=== PATIENT | female | born 1965 | race Caucasian/White ===

== ENCOUNTER 2019-11-21 13:49 | Emergency (ER) | payer BC, SELFPAY ==
[2019-11-21 13:55] VITALS: BP 160/91; PULSE 91; RESP 14; TEMP 36.3; O2SAT 92
--- NOTE | 2019-11-21 13:57 | W.ED.GENAD ---
Discharge Plan Disposition Patient Disposition: HOME Condition: Stable Discharge Details Chief Complaint: Orthopedic Clinical Impression: Left knee pain Primary Care Provider: Igor Brooks ED Provider: Deloris Pulliam Home Meds and New Rx's Prescriptions: Continued ibuprofen 600 MG tablet 600 mg PO TID Qty: 30 RF: 1 Discharge Instructions Instructions: Knee Pain (ED) Additional Instructions: Rest, ice, and elevate the affected area as much as possible. Alternate tylenol and motrin as needed and directed for pain. Follow-up with your primary care doctor in 1 week. You can also call orthopedics for follow-up for further evaluation if your knee pain persists or worsens. Return to the emergency department with any worsening or new concerning symptoms. Referrals: Warren Tay MD [ [facility] STAFF PHYSICIAN] - Discharge Data Discharge Date/Time-TO BE ENTERED AT DEPARTURE: 11/21/19 15:21 Discharge Physician: Deloris Pulliam Medical Decision Making 53-year-old female presents with left knee pain for the past 5 months after 2 falls directly onto knee, worse over the past several weeks after twisting knee while walking. Left knee appears mild to moderately edematous with mild ecchymosis. Pain with range of motion, most specifically flexion. No ligamentous instability. No sign of cellulitis or septic joint. No calf tenderness. Neurovascular intact. Left knee x-ray obtained and negative. Patient declined ibuprofen here. She was advised that she likely can have continued pain after injury with continued ambulation complicated by sprain with continued ambulation. Advised on the importance of rest, ice, elevate, NSAIDs and Tylenol. Ede wrap placed and crutches given. Usual and customary return precautions given prior to discharge. Imaging Data Radiologic Study: Radiologist's impression: XR KNEE LT 4V+ CLINICAL HISTORY: trauma. TECHNIQUE: 2D digital imaging was performed. COMPARISON: No exams were available for comparison FINDINGS: BONES: No acute fracture is present. No bony destructive lesion is seen. JOINTS: The knee is normally aligned. No joint effusion is seen. SOFT TISSUE: Normal. IMPRESSION: Normal radiographs of the left knee. HPI General Mode of arrival: ambulatory. Date/Time Provider Initiated Documentation: 11/21/19 13:57. Limitations to Documentation: no limitations. Information obtained by: patient. HPI Narrative: Patient is a 53-year-old female who presents with left knee pain for the past 5 months. Patient states she had 2 falls onto her left knee in June and has had pain and swelling since then. She states since the coronavirus pandemic, she has been walking more frequently for exercise over the past few weeks and thinks she may have tweaked her knee as she has had worsening pain, specifically with weightbearing and bending in her left knee. She denies any new fall onto her left knee. She denies any fever. She has been taking ibuprofen with some relief. Related Data Home Medications Medication Instructions Recorded Confirmed ibuprofen 600 mg PO TID #30 tab 12/13/14 11/21/19 Previous Rx's Medication Instructions Recorded ibuprofen 600 mg PO TID #30 tab 12/13/14 Allergies Allergy/AdvReac Type Severity Reaction Status Date / Time No Known Allergies Allergy Unverified 11/21/19 14:02 Review of Systems All systems reviewed & are unremarkable except as noted in HPI and below PFSH Social History Smoking/Tobacco Use Status: Current every day Alcohol Intake: current Alcohol Intake frequency: holidays/special occasions only Drug use: Never Substance use type: does not use Do you feel safe at home: Yes Do you feel safe in your relationship?: Yes Exam Const General: cooperative, healthy appearing and no acute distress HENMT Head: normal to inspection Mouth: oral mucosae normal Eyes General: appearance normal, both eyes and all related structures Neck Neck: normal visual inspection Resp Effort & Inspection: normal respiratory effort and able to speak in complete sentences Cardio Rate: regular rate Skin General skin exam: no rashes or lesions noted Neuro General: patient alert, patient awake and patient oriented x3 Motor: muscle tone normal throughout Extrem Knee images: 1. Mild to moderate anterior edema and ecchymosis. No crepitus, erythema, rash or lesions. Other: Pain in left knee with range of motion, most specifically flexion. No pain with valgus or varus stress. Negative anterior posterior drawer test. Limited ability to test range of motion due to significant pain. No left calf tenderness. Left DP/PT pulses intact. Psych Appearance: grossly normal Affect: normal affect
--- NOTE | 2019-11-21 14:00 | DI.RAD_ITS ---
EXAM: XR KNEE LT 4V+ CLINICAL HISTORY: trauma. TECHNIQUE: 2D digital imaging was performed. COMPARISON: No exams were available for comparison FINDINGS: BONES: No acute fracture is present. No bony destructive lesion is seen. JOINTS: The knee is normally aligned. No joint effusion is seen. SOFT TISSUE: Normal. IMPRESSION: Normal radiographs of the left knee. DATA REPOSITORY: RADIATION DOSE DELIVERED:
[2019-11-21 15:15] VITALS: BP 147/92; PULSE 73; RESP 18; TEMP 36.3; O2SAT 99
== END 2019-11-21 15:21 | disposition home or self-care (01) ==
PROVIDERS: Emergency Provider Physician Assistant; PCP Internal Medicine
DX: M25.562 Pain in left knee (principal); W19.XXXA Unspecified fall, initial encounter; X50.9XXA Other and unspecified overexertion or strenuous movements or postures, initial encounter
CPT/HCPCS: 99283; 73564; E0114

== ENCOUNTER 2020-07-30 22:20 | Outpatient (REF) | payer BC, SELFPAY ==
[2020-08-01 14:03] LABS: COVID-19 RT-PCR UVMMC Result Negative (Negative)
== END 2020-07-30 22:21 | disposition home or self-care (01) ==
LOC: NCHCN 22:20
PROVIDERS: PCP Internal Medicine; Visit Provider Nurse Practitioner Family
DX: R68.83 Chills (without fever) (principal); M79.18 Myalgia, other site
CPT/HCPCS: U0003

== ENCOUNTER 2021-08-05 08:07 | Emergency (ER) | payer OTHER, SELFPAY ==
[2021-08-05 08:14] VITALS: BP 121/83; PULSE 81; RESP 14; TEMP 36.7; O2SAT 98
--- NOTE | 2021-08-05 08:30 | DI.RAD_ITS ---
Exam(s) XR KNEE LT 3V AP,LAT,JAQUAN EXAM: XR KNEE LT 3V AP,LAT,JAQUAN CLINICAL HISTORY: pain posterior medial. TECHNIQUE: 2D digital imaging was performed of the left knee. Three images were obtained. AP, AP t unnel and lateral views were obtained. COMPARISON: CR CHEST 2 VIEWS PA,LAT from 12/13/2014 CR XR KNEE LT 4V+ from 11/21/2019 FINDINGS: BONES: No acute fracture is present. No bony destructive lesion is seen. JOINTS: The knee is normally aligned. No joint effusion is seen. SOFT TISSUE: Normal. IMPRESSION: Normal radiographs of the left knee. DATA REPOSITORY: RADIATION DOSE DELIVERED:
--- NOTE | 2021-08-05 08:30 | DI.US_ITS ---
Exam(s) US LOWER EXTREMITY VENOUS LT EXAM: US LOWER EXTREMITY VENOUS LT CLINICAL HISTORY: pain TECHNIQUE: Left lower extremity venous ultrasound performed using grayscale, color-flow, and spectra l Doppler analysis. COMPARISON: No exams were available for comparison FINDINGS: The left common femoral, femoral and popliteal veins demonstrate normal compressibility, augmentation , and color Doppler. The posterior tibial veins are patent. The saphenofemoral junction is unremarka ble. There is no evidence of a Estes cyst. The soft tissues are unremarkable. IMPRESSION: 1. No DVT. 2. Results of this exam have been verbally communicated with provider. DATA REPOSITORY:
[2021-08-05] MEDS: Ibuprofen 600 MG TAB PO (08:37)
--- NOTE | 2021-08-05 08:38 | W.ED.GENAD ---
Discharge Plan Disposition Patient Disposition: HOME Condition: Stable Discharge Details Clinical Impression: Acute pain of left knee Primary Care Provider: Jean Gayle ED Provider: Yemi Villatoro Home Meds and New Rx's Prescriptions: Continued ibuprofen 600 MG tablet 600 mg PO TID Qty: 30 RF: 1 Changed acetaminophen [Tylenol] 325 mg Tablet 650 mg PO TID Qty: 0 RF: 0 Discharge Instructions Instructions: Knee Pain (ED) Additional Instructions: Please take ibuprofen over the counter. Take 600mg by mouth every 6 hours as needed for pain. Use hinged knee brace and crutches over the next week. You may bear weight as tolerated. If pain persists, continue to use brace Please contact orthopedics to arrange follow-up if pain persists this week. Return to the ER immediately for any worsening or new concerning symptoms. Stand Alone Forms: Work Release Referrals: [facility] [Provider Group] Jean Gayle [Primary Care Provider] - Medical Decision Making 55yo f here with atraumatic left knee pain that started yesterday and has persisted. No inflammatory changes appreciable on exam other than tenderness medial and posterior knee. She does have some tenderness in her posterior calf as well. Consider DVT versus arthritis. I will check right lower extremity ultrasound as well as knee x-ray. Patient was given ibuprofen 600 mg PO. -- ultrasound interpreted by radiology: negative for dvt -- xray lt knee interpreted by radiology:normal radiographs of the left knee Suspect medial meniscal injury vs arthritis. Hinged knee brace applied. Recommended crutches and patient refused noting that she had crutches at home. Recommended followup ortho if symptoms persist. Patient verbalized understanding of discharge instructions. HPI General Mode of arrival: ambulatory. Date/Time Provider Initiated Documentation: 08/05/21 08:22. Limitations to Documentation: no limitations. Information obtained by: patient. HPI Narrative: 55-year-old female presents with chief complaint of left knee pain. Pain started yesterday morning upon waking. Pain has persisted and progressed. Now moderate to severe and worse with movement of the knee. Pain localized to medial knee and posterior knee and upper leg. No associated rash or fever. Patient cannot recall any specific injury. Denies tick bite in the past year. Patient notes that she took Tylenol this morning which has not helped. Related Data Home Medications Medication Instructions Recorded Confirmed ibuprofen 600 mg PO TID #30 tab 12/13/14 08/05/21 acetaminophen [Tylenol] 650 mg PO TID #0 tab 08/05/21 08/05/21 Previous Rx's Medication Instructions Recorded ibuprofen 600 mg PO TID #30 tab 12/13/14 acetaminophen [Tylenol] 650 mg PO TID #0 tab 08/05/21 Allergies Allergy/AdvReac Type Severity Reaction Status Date / Time No Known Allergies Allergy Unverified 08/05/21 08:18 General Stated Complaint: Orthopedic ANASTACIA: 3 Review of Systems All systems reviewed & are unremarkable except as noted in HPI and below Constitutional Constitutional: Denies fever(s) Musculoskeletal Musculoskeletal: Reports as per HPI Integumentary/Breasts Skin/Breast: Denies rash PFSH All Active Problems (Updated 08/05/21 @ 10:44 by Yemi Villatoro MD) Acute pain of left knee (Acute) Social History Smoking/Tobacco Use Status: Current every day Tobacco Type: cigarettes Smoking risk assessment performed?: Yes Alcohol Intake: current Alcohol Intake frequency: holidays/special occasions only Drug use: Never Substance use type: does not use Do you feel safe at home: Yes Do you feel safe in your relationship?: Yes Exam Const General: cooperative and no acute distress HENMT Mouth: moist mucous membranes Resp Auscultation: clear to auscultation bilaterally, no rales, no rhonchi and no wheezes Cardio Rate: regular rate and not tachycardic Rhythm: regular rhythm Pulses: dorsalis pedis present Skin General skin exam: no rashes or lesions noted Neuro General: patient alert, patient awake, patient oriented x3 and tone normal Extrem General: no edema Left lower extremity: knee Details: tenderness Location: of the medial joint line and abnormal ROM Details: pain with active ROM Details: with flexion; no swelling and lower leg Details: tenderness Location: of the posterior calf Course Vital Signs Vital signs: Vital Signs Temperature 36.7 C 08/05/21 08:14 Pulse 81 08/05/21 08:14 Respiratory Rate 14 08/05/21 08:14 Blood Pressure 121/83 08/05/21 08:14 Pulse Oximetry 98 08/05/21 08:14 Temperature 36.7 C 08/05/21 08:14 Temperature Source Oral 08/05/21 08:14 Pulse 81 08/05/21 08:14 Respiratory Rate 14 08/05/21 08:14 Respiratory Effort Non-Labored 08/05/21 08:20 Blood Pressure 121/83 08/05/21 08:14 Blood Pressure Position Sitting 08/05/21 08:14 Pulse Oximetry 98 08/05/21 08:14 Oxygen Delivery Method Room Air 08/05/21 08:14 Oxygen Flow Rate 0 08/05/21 08:14 Pain Level 8 08/05/21 08:20
[2021-08-05 11:07] VITALS: BP 135/81; PULSE 62; RESP 18; O2SAT 98
== END 2021-08-05 11:16 | disposition home or self-care (01) ==
PROVIDERS: Emergency Provider Student in an Organized Health Care Education/Training Program; PCP Physician Assistant
DX: M25.562 Pain in left knee (principal)
CPT/HCPCS: 29505; 73562; 99284; 93971; 99283

== ENCOUNTER 2021-08-15 08:19 | Outpatient (REF) | payer OTHER, SELFPAY ==
[2021-08-15 15:20] LABS: HCT 41.9 % (36.0-46.0); HGB 14.1 g/dL (11.2-15.7); MCH 30.4 pg (27.0-33.0); MCHC 33.7 % (32.0-36.0); MCV 90.3 fL (80-95); MPV 8.9 fL (8.0-11.0); Platelet Count 339 10^3/uL (130-400); RBC 4.64 10^6/uL (3.93-5.22); RDW 12.4 % (11.7-14.6); RDW-SD 41.2 fL; WBC 8.47 10^3/uL (4.4-10.8)
[2021-08-15 15:44] LABS: Anion Gap 10.3 mmol/L (3-11); BUN 21 mg/dL (7-18); CO2 25.7 mmol/L (21.0-32.0); CREATININE 0.8 mg/dL (0.55-1.02); Calcium 9.3 mg/dL (8.5-10.1); Calculated LDL 165 mg/dL (<100); Chloride 104 mmol/L (98-107); Cholesterol 252 mg/dL (<200); Glucose 86 mg/dL (74-106); HDL Cholesterol 68 mg/dL (40-60); Potassium 4.2 mmol/L (3.5-5.1); Sodium 140 mmol/L (136-145); Triglyceride 96 mg/dL (<150)
== END 2021-08-15 08:20 | disposition home or self-care (01) ==
LOC: NCHCN 08:19
PROVIDERS: PCP Physician Assistant; Visit Provider Physician Assistant
DX: Z00.00 Encounter for general adult medical examination without abnormal findings (principal)
CPT/HCPCS: 80048; 80061; 85027

== ENCOUNTER 2021-09-01 03:17 | Outpatient (CLI) | payer OTHER, SELFPAY ==
--- NOTE | 2021-09-01 16:30 | DI.MAMMO_ITS ---
Exam(s) MAMMO SCREENING EXAM: MAMMO SCREENING CLINICAL HISTORY: SCREENING, Z12.39 TECHNIQUE: Mammograms were interpreted according to the usual protocol including computer analysis w [employer] CAD system, tomosynthesis and C-view imaging. COMPARISON: No exams were available for comparison. Last exam 2007 FINDINGS: The breasts are composed of scattered fibroglandular densities, Breast Density category B. No suspicious masses or suspicious microcalcifications are seen. Benign calcifications are noted in the central right breast. No skin thickening or abnormal axillary lymph nodes are seen. IMPRESSION: BI-RADS Cat 2 - Benign Findings, BI-RADS Category 2 - Negative Mammogram with benign findings. Year ly screening mammography is recommended. Yearly screening mammography is recommended. Breast Density - Category B, scattered fibroglandular densities. A negative radiographic report should not delay biopsy if a dominant or clinically suspicious mass is present. Up to ten percent of cancers are not identified on mammography. A negative report may reinforce clinical impression. Adenosis and dense breasts may obscure an underlying neoplasm. False positive reports average 6 to 10%. Patient will receive a letter notifying them of these results.
== END 2021-09-01 03:37 ==
PROVIDERS: PCP Physician Assistant; Visit Provider Physician Assistant
DX: Z12.31 Encounter for screening mammogram for malignant neoplasm of breast (principal)
CPT/HCPCS: 77063; 77067

== ENCOUNTER 2021-10-29 07:35 | Day surgery (SDC) | payer OTHER, SELFPAY ==
--- NOTE | 2021-10-29 07:00 | W.COLOREPORT ---
Colonoscopy Report Date of procedure: 10/29/21 Pre-op diagnosis general: Colon Cancer Screening Post-op diagnosis procedure note: same Procedure: Colonoscopy Surgeon: Ellyn Luu Anesthesia Type: General:No Airway Pathology: none sent Complications: None Disposition: same day Indications: Ms. Gudino is a pleasant 55-year-old female who is here to discuss her for screening colonoscopy.? She denies any family history of colon cancer.? The procedure was described in detail as well as the risks and benefits. Risks, benefits and complications have been reviewed. Complications include but are not limited to bleeding, pain, perforation, missed small lesion/polyp, sore throat, aspiration and adverse reaction to the medications. Questions were entertained and answered to their satisfaction and they wished to proceed. No guarantees were given or implied. Colonoscopy under sedation Prep: Miralax/Dulcolax Procedure Start Time: 09:34 Procedure End Time: 09:50 Retraction Time: 10 minutes Findings: mild sigmoid diverticulosis Procedure Description: After informed consent was obtained the patient was taken to the procedure room and placed in a left decubitous position. Monitors were applied and a time out was done. The patients name, date of , procedure, allergies to medications and metal in their body was reviewed. The patient was then sedated. Once sedated and comfortable a rectal exam was done. External exam was normal. Internal exam revealed a normal sphincter tone and no palpable masses. The scope was then introduced and retro-flexed. No internal hemorrhoids, polyps or masses were identified on retro-flexion. The scope was then advanced to the cecum without difficulty. The ileocecal vlave and appendiceal orifice were identified. The prep was good. The scope was then slowly retracted over 10 minutes back into the rectum. There were no Polyps. There was mild sigmoid diverticulosis noted. The scope was removed and the patient was woken up and taken back to Same day surgery in stable condition. The patient tolerated the procedure well and there were no immediate complications. Follow up: The patient should follow up in 10 years unless they develop changes in bowel habits or other new gastrointestinal complaints.
--- NOTE | 2021-10-29 07:01 | W.PM.DSUDISC ---
Discharge Plan Disposition Patient Disposition: HOME Condition: Good Discharge Details Reason For Visit: Colonoscopy Attending Provider: Ellyn Luu Primary Care Provider: Jean Gayle Home Meds and New Rx's Prescriptions: Continued ibuprofen 600 MG tablet 600 mg PO TID Qty: 30 1RF acetaminophen [Tylenol] 325 mg Tablet 650 mg PO TID Qty: 0 0RF Discharge Instructions Additional Instructions: Findings: normal Follow up: 10 minutes Please call if you develop: fevers >101.5 Nausea or Vomiting Abdominal pain that is not transient Rectal bleeding that is more then a tbsp A hard abdomen and inability to pass gas DAY SURGERY UNIT POST ENDOSCOPY INSTRUCTIONS Instructions for everyone who is given Anesthesia: For your safety, please do the following for the next 24 Hours: a. Do not drive or operate dangerous equipment b. Do not drink alcohol beverages or use any recreational drugs for the first 24 hours or while taking pain medications. The medications in your body may have a reaction that can be dangerous. c. Do not make any important decisions or sign any important papers 1. Generally there are no restrictions on your activity after a day or so has gone by, but you may feel a bit fatigued for a few days. 2. After you arrive home you may have a light meal and return to a normal diet as you can tolerate it without feeling sick to your stomach. 3. After surgery, you may feel pain or discomfort. This should be only transient, but if it persists please contact your doctor. 4. If there are any questions regarding the findings of your procedure, please feel free to contact your doctor. 6. If you are unable to contact your doctor with a problem, contact the hospital at [phone]. 7. Continue all your regular medications unless directed otherwise. I understand the above instructions and have no questions. Signature of Patient or Responsible Adult Escort Date/Time Name of Responsible Adult Escort Signature of Nurse Date/Time Activity:: Activity as Tolerated Diet:: As Tolerated Discharge Orders Discharge Orders: Discharge Order (Routine); Ordered 10/29/21 Ordered By: Ellyn Luu
[2021-10-29 07:47] VITALS: BP 115/87; PULSE 86; RESP 17; TEMP 36.5; O2SAT 100
[2021-10-29] MEDS: Lactated Ringers 1,000 ML 80 ML IV (08:03)
--- NOTE | 2021-10-29 08:38 | W.ANESPRE ---
General Info Date of Service Date Performed: 10/29/21 Height: 5 ft 3 in Weight: 76.2 kg Body Mass Index (BMI): 29.7 Surgical Procedure: Operation Date: 10/29/21 09:20 Proposed Procedure Side Surgeon p Colonoscopy Ellyn Luu MD Meds Allergies and Home Medications Allergies Allergy/AdvReac Type Severity Reaction Status Date / Time No Known Allergies Allergy Unverified 10/29/21 07:54 Home Medication Medication Instructions Recorded ibuprofen 600 mg tablet 600 mg PO TID #30 tab 12/13/14 acetaminophen 325 mg tablet 650 mg PO TID #0 tab 08/05/21 (Tylenol) Current Visit Medications: Current Medications Generic Name Dose Route Start Last Admin Trade Name Freq PRN Reason Stop Dose Admin Hyoscyamine Sulfate 0.125 mg 10/29/21 07:02 Hyoscyamine 0.125 Mg Sl/Oral/Chew SL DIRECTED PRN Ringer's Solution 1,000 mls @ 80 mls/hr 10/29/21 06:00 10/29/21 08:03 IV 11/27/21 23:59 80 mls/hr INFUSION NAOMI Administration IV Miscellaneous Supplies 1 each 10/29/21 06:00 Iv Access IV 11/27/21 23:59 DIRECTED NAOMI Ondansetron HCl 4 mg 10/29/21 07:02 Ondansetron 4 Mg/2 Ml Vial IVP Q4H PRN PRN Nausea / Vomiting Sodium Chloride 0 ml 10/29/21 06:00 Normal Saline Flush 10 Ml Syr IV 11/27/21 23:59 PRN PRN Sodium Chloride 0 ml 10/29/21 06:00 Normal Saline 10 Ml Vial IJ 11/27/21 23:59 DIRECTED PRN Sterile Water 0 ml 10/29/21 06:00 Water,Injection,Sterile 10 Ml Vial IJ 11/27/21 23:59 DIRECTED PRN PFSH Active Problems Active Problems: Problem Status Onset Code Screening for colon cancer Z12.11 Nicotine dependence F17.200 Medical History Medical History Impingement syndrome of right shoulder Surgical History Surgical History H/O tubal ligation (~04/11/02) History of hernia repair (~06/28/99) left femoral incarcerated hernia Tobacco Smoking/Tobacco Use Status: Current every day Tobacco Type: cigarettes Smoking cigarettes per day: 10 Alcohol Alcohol Intake: current Alcohol intake frequency: holidays/special occasions only Substance Use Substance use: Never Substance use type: does not use Vital Signs and Lab Results Vital Signs Most Recent Vital Signs in EMR: Most Recent Vital Signs Temp Pulse Resp BP Pulse Ox 36.5 C 86 17 115/87 100 10/29/21 07:47 10/29/21 07:47 10/29/21 07:47 10/29/21 07:47 10/29/21 07:47 Lab Results Blood Type / Crossmatch: No Data to Display Complete Blood Count: No Data to Display Complete Metabolic Panel: No Data to Display Liver Function Panel: No Data to Display Coagulation Panel: No Data to Display Cardiac Panel: No Data to Display Arterial Blood Gas: No Data to Display Venous Blood Gas: No Data to Display Pancreas Panel: No Data to Display Thyroid Panel: No Data to Display Infectious Disease: No Data to Display Blood Cultures: No Data to Display Toxicology Panel: No Data to Display Panel: No Data to Display Anesthesia Assessment and Plan Anesthesia History Personal History: No History of Anesthesia Complications and Pseudocholinesterase Deficiency Family History: No Family History of Anesthesia Complications Exercise Tolerance Exercise Tolerance: Metabolic Equivalents>4 Pertinent Negatives Pertinent Negatives: No Symptoms of GERD, No Major Cardiovascular Symptoms or Complaints, No Major Pulmonary Symptoms or Complaints and No History of CVA/TIA Cardiac & Pulmonary Exam Cardiac Exam: Normal S1/S2 Heart Sounds Pulmonary Exam: Clear Bilateral Breath Sounds Implantable Cardiac Device Does patient have a Pacemaker or an ICD?: No Airway Exam Known Difficult Airway: No Mallampati Class: 2 Mouth Opening: Normal (> 3cm) Thyromental Distance: Greater than 3 cm Neck Range of Motion: Full ROM Neck Circumference: Normal Teeth Condition: Normal Dentition (Mulitple broken upper and lower per patient) ASA Classification ASA Score: ASA 2 Emergency Case?: No NPO Status NPO Status: NPO Clears >2 hours, Solids >8 hours Status Status: Not Relevant due to Medical History Anesthesia Plan Resuscitation Status: Full Code Anesthesia Technique: General Anesthesia Airway Planned: Natural Airway Monitors Used: Standard Monitors
[2021-10-29 09:21] VITALS: BMI 29.7
[2021-10-29 10:01] VITALS: BP 108/79; PULSE 65; RESP 18; TEMP 36.7; O2SAT 98
--- NOTE | 2021-10-29 10:20 | W.ANESPOSTOP ---
Postoperative Evaluation Date, Time and Location Date Performed: 10/29/21 Time Performed: 10:01 Patient Location: Day Surgery Unit Vital Signs Most Recent Imported Vital Signs: Most Recent Vital Signs Temp Pulse Resp BP Pulse Ox 36.7 C 65 18 108/79 98 10/29/21 10:01 10/29/21 10:01 10/29/21 10:10/29/21 10:10/29/21 10:01 Pain Score Most Recent Pain Score: Most Recent Pain Score Pain Level 0 10/29/21 10:01 Assessment Mental Status: Awake (Alert & Oriented to Patient Baseline) Airway and Respiratory Function: Patent airway with normal (patient baseline) respiratory exam Cardiovascular Function: Hemodynamically Stable Hydration Status: Adequately Hydrated Nausea & Vomiting: No Nausea or Vomiting Pain: Pt. Denies Any Pain Peripheral Nerve Block: Patient did not receive a nerve block
[2021-10-29 10:22] VITALS: BP 115/75; PULSE 56; RESP 18; TEMP 36.4; O2SAT 99
== END 2021-10-29 11:13 | disposition home or self-care (01) ==
LOC: SUR 07:35
PROVIDERS: PCP Physician Assistant; Visit Provider Surgery
PROC: 0DJD8ZZ Inspection of Lower Intestinal Tract, Via Natural or Artificial Opening Endoscopic (ICD-10-PCS; CPT 45378; principal; 2021-10-29 09:15)
DX: Z12.11 Encounter for screening for malignant neoplasm of colon (principal); K57.30 Diverticulosis of large intestine without perforation or abscess without bleeding
CPT/HCPCS: 45378

== ENCOUNTER 2024-02-14 18:51 | Emergency (ER) | payer BC, SELFPAY ==
[2024-02-14 18:55] VITALS: BP 159/88; PULSE 79; RESP 16; TEMP 36.9; O2SAT 96
[2024-02-14 19:52] VITALS: BP 146/81; PULSE 78; RESP 16; O2SAT 95
[2024-02-14] MEDS: Ciprofloxacin 0.3% 2.5 ML BTL OD (20:41)
--- NOTE | 2024-02-14 23:13 | W.ED.GENAD ---
Discharge Plan Disposition Patient Disposition: Home Condition: Stable Discharge Details Clinical Impression: Hx of subconjunctival hemorrhage, Abrasion, corneal Primary Care Provider: Jean Gayle ED Provider: Radha Rodriguez Home Meds and New Rx's Prescriptions: Continued varenicline [Chantix Starting Month Box] 0.5 mg (11)- 1 mg (42) tablets,dose pack See Rx Instructions PO PER PKG DIR Rx Instructions: PO PER PKG DIR nicotine 21 mg/24 hr patch 24 hour 1 patch transdermal DAILY ibuprofen 600 MG tablet 600 mg PO TID Qty: 30 1RF acetaminophen [Tylenol] 325 mg Tablet 650 mg PO TID Qty: 0 0RF Discharge Instructions Instructions: Corneal Abrasion ED Additional Instructions: Use the eyedrops 1 drop every 4-6 hours for the next 5 days Refrain from replacing your contacts until your symptoms improved Follow-up with your eye doctor as needed and return earlier should you have new or worsening complaints Referrals: Jean Gayle [Primary Care Provider] - HPI General Date/Time Provider Initiated Documentation: 02/14/24 19:33. HPI Narrative: This 58-year-old female presents with injury to right eye just prior to arrival. She states she was trying to hit a balloon and accidentally hit her eye. She also cannot find her contact lens. She denies any vision change to the right eye. Denies any history of coagulopathy. Related Data Home Medications ?Medication ?Instructions ?Recorded ?Confirmed ibuprofen 600 mg tablet 600 mg PO TID #30 tabs 12/13/14 02/14/24 acetaminophen 325 mg tablet 650 mg (2 x 325 mg) PO TID #0 tabs 08/05/21 02/14/24 (Tylenol) nicotine 21 mg/24 hr daily 1 patch transdermal DAILY 09/09/23 02/14/24 transdermal patch varenicline 0.5 mg (11)-1 mg (42) See Rx Instructions PO PER PKG DIR 09/09/23 02/14/24 tablets in a dose pack (Chantix Starting Month Box) Previous Rx's ?Medication ?Instructions ?Recorded ibuprofen 600 mg tablet 600 mg PO TID #30 tabs 12/13/14 acetaminophen 325 mg tablet 650 mg (2 x 325 mg) PO TID #0 tabs 08/05/21 (Tylenol) Allergies Allergy/AdvReac Type Severity Reaction Status Date / Time No Known Allergies Allergy Unverified 02/14/24 19:58 General Stated Complaint: EyeProblem ANASTACIA: 4 Exam Narrative Exam Narrative: Right eye with obvious subconjunctival hemorrhage with corneal abrasion, no contact visualized, lids everted. Pupil equal round reactive to light and accommodation without Emilia sign Course Vital Signs Vital signs: Vital Signs Temperature 36.9 C 02/14/24 18:55 Pulse 79 02/14/24 18:55 Respiratory Rate 16 02/14/24 18:55 Blood Pressure 159/88 H 02/14/24 18:55 Pulse Oximetry 96 02/14/24 18:55 Temperature 36.9 C 02/14/24 18:55 Temperature Source Oral 02/14/24 18:55 Pulse 78 02/14/24 19:52 Respiratory Rate 16 02/14/24 19:52 Respiratory Effort Normal, Non-Labored 02/14/24 19:52 Blood Pressure 146/81 H 02/14/24 19:52 Blood Pressure Position Sitting 02/14/24 19:52 Pulse Oximetry 95 02/14/24 19:52 Oxygen Delivery Method Room Air 02/14/24 19:52 Oxygen Flow Rate 0 02/14/24 18:55 Pain Level 7 02/14/24 19:52 Medical Decision Making 58-year-old female presenting with eye injury. Subconjunctival hemorrhage and corneal abrasion noted. Cipro eyedrops applied. 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 Return precautions reviewed and patient expressed understanding, visual acuity reviewed without acute abnormality, 2019 bilateral eyes Quality:SDOH Health Related Social Needs: No Data to Display PFSH All Active Problems (Updated 02/14/24 @ 20:06 by SAMANTA Mathews) Abrasion, corneal (Acute) Hx of subconjunctival hemorrhage (Acute) Screening for colon cancer (Acute) Nicotine dependence (Acute) Medical History (Updated 02/14/24 @ 20:06 by SAMANTA Mathews) Low back pain Hyperlipidemia Impingement syndrome of right shoulder Surgical History (Updated 10/31/21 @ 14:19 by Gina Dean RN) History of colonoscopy (~10/2021) History of hernia repair (~06/28/99) left femoral incarcerated hernia H/O tubal ligation (~04/11/02) Social History Smoking/Tobacco Use Status: Former Tobacco Use Quit Date: 11/27/23 Smoking risk assessment performed?: Yes Alcohol Intake: current Alcohol Intake frequency: holidays/special occasions only Alcohol type: beer Drug use: Never Substance use type: does not use Housing: house Current gender identity: female Do you feel safe at home: Yes Do you feel safe in your relationship?: Yes
== END 2024-02-14 20:47 | disposition home or self-care (01) ==
PROVIDERS: Emergency Provider Physician Assistant; PCP Physician Assistant
DX: H11.31 Conjunctival hemorrhage, right eye (principal); S05.01XA Injury of conjunctiva and corneal abrasion without foreign body, right eye, initial encounter; Z87.891 Personal history of nicotine dependence; W22.8XXA Striking against or struck by other objects, initial encounter
CPT/HCPCS: 99283

== ENCOUNTER 2024-08-04 14:22 | Outpatient (REF) | payer BC, SELFPAY ==
[2024-08-04 16:11] LABS: HCT 40.3 % (36.0-46.0); HGB 13.9 g/dL (11.2-15.7); MCH 30.8 pg (27.0-33.0); MCHC 34.5 % (32.0-36.0); MCV 89 fL (80-95); Platelet Count 334 10^3/uL (130-400); RBC 4.51 10^6/uL (3.93-5.22); RDW 12.5 % (11.7-14.6); RDW-SD 40.8 fL
[2024-08-04 16:38] LABS: ALT 33 U/L (14-59); AST 18 U/L (15-37); Albumin 3.6 g/dL (3.4-5.0); Alkaline Phosphatase 107 U/L (46-116); Anion Gap 7.3 mmol/L (3-11); BUN 20 mg/dL (7-18); CO2 27.7 mmol/L (21.0-32.0); CREATININE 0.8 mg/dL (0.55-1.02); Calcium 9.3 mg/dL (8.5-10.1); Calculated LDL 166 mg/dL (<100); Chloride 103 mmol/L (98-107); Cholesterol 261 mg/dL (<200); Estimated GFR 85.89 (mL/min/1.73m2); Glucose 94 mg/dL (74-106); HDL Cholesterol 55 mg/dL (40-60); Potassium 4.2 mmol/L (3.5-5.1); Sodium 138 mmol/L (136-145); TSH 0.77 uIU/mL (0.36-3.74); Total Protein 7.3 g/dL (6.4-8.2); Triglyceride 200 mg/dL (<150)
[2024-08-04 17:10] LABS: Hemoglobin A1C 5.8 % (<5.7)
[2024-08-04 17:17] LABS: FREE T4 0.81 ng/dL (0.76-1.46)
== END 2024-08-04 14:23 | disposition home or self-care (01) ==
LOC: NCHCN 14:22
PROVIDERS: PCP Physician Assistant; Visit Provider Physician Assistant
DX: E78.5 Hyperlipidemia, unspecified (principal); Z13.1 Encounter for screening for diabetes mellitus
CPT/HCPCS: 80053; 80061; 85027; 83036; 84439; 84443

== ENCOUNTER 2025-04-25 01:31 | Outpatient (CLI) | payer BC, SELFPAY ==
--- NOTE | 2025-04-25 | DI.MAMMO_ITS ---
Exam(s) MAMMO SCREENING EXAM: MAMMO SCREENING CLINICAL HISTORY: SCREENING, Z12.39. TECHNIQUE: Bilateral full field digital CC and MLO mammographic images were obtained with 3D tomosynthesis and utilizing computer aided detection (CAD). COMPARISON: Prior 2021 mammograms were reviewed. FINDINGS: There has been no significant change in the appearance and distribution of the fibroglandular tissue. Benign-appearing punctate microcalcifications in the left breast are unchanged. There are no new spiculated masses nor malignant appearing microcalcification groups. There is no significant architectural distortion nor skin thickening-retraction. IMPRESSION: No radiographic evidence of malignancy. BI-RADS Category 2 - Benign Findings Breast Density - Category B - There are scattered areas of fibroglandular density. Breast density Category C or D implies that the patient has dense breast tissue. Dense breast tissue can make it harder to find cancer on a mammogram. Dense breast tissue is also associated with an increased risk of breast cancer. This information about the result of the mammogram report was provided to the patient to raise their awareness. Use this report when you speak with the patient about their risks for breast cancer, which includes their family history. At that time, you may recommend additional screening tests (Ultrasound or MRI) as these tests may add significant information. A negative radiographic report should not delay biopsy if a dominant or clinically suspicious mass is present. Up to ten percent of cancers are not identified on mammography. A negative report may reinforce clinical impression. Adenosis and dense breasts may obscure an underlying neoplasm. False positive reports average 6 to 10%. Patient will receive a letter notifying them of these results.
== END 2025-04-25 01:51 ==
LOC: DI 01:32
PROVIDERS: PCP Physician Assistant; Visit Provider Physician Assistant
DX: Z12.31 Encounter for screening mammogram for malignant neoplasm of breast (principal); R92.323 Mammographic fibroglandular density, bilateral breasts
CPT/HCPCS: 77063; 77067

== ENCOUNTER 2025-06-04 01:28 | Outpatient (CLI) | payer BC, SELFPAY ==
[2025-06-04 07:59] LABS: Hemoglobin A1C 5.4 % (<5.7)
[2025-06-04 08:08] LABS: ALT 21 U/L (10-49); AST 24 U/L (<34); Albumin 4.2 g/dL (3.2-5.0); Alkaline Phosphatase 95 U/L (46-116); Anion Gap 6.7 mmol/L (3-11); BUN 16 mg/dL (9-23); Bilirubin, Total 0.40 mg/dL (0.2-1.2); CO2 29.3 mmol/L (20.0-31.0); Calcium 9.1 mg/dL (8.3-10.6); Chloride 106 mmol/L (98-107); Cholesterol 221 mg/dL (<200); Glucose 87 mg/dL (74-106); HDL Cholesterol 60 mg/dL (>40); Potassium 3.9 mmol/L (3.5-5.1); Sodium 142 mmol/L (136-145); Total Protein 7.0 g/dL (5.7-8.2)
== END 2025-06-04 01:29 | disposition home or self-care (01) ==
LOC: LBO 01:28
PROVIDERS: PCP Physician Assistant; Visit Provider Physician Assistant
DX: R73.03 Prediabetes (principal); E78.5 Hyperlipidemia, unspecified
CPT/HCPCS: 36415; 80053; 80061; 83036